=== PATIENT | female | born 1985 | race Two or more races ===

== ENCOUNTER 2021-02-12 23:07 | Emergency (ER) | payer OTHER ==
[~2021-02-12] VITALS: Ht 165.1 cm; Wt 63.6 kg
--- NOTE | 2021-02-12 23:13 | PHYS DOC ---
Adult General HPI HPI Patient is a 35-year-old female who presents with right ankle pain, 7 out of 10 after falling and twisting it, with no radiation. Denies any other injuries. States she is able to walk but it causes discomfort. Review of Systems Review of Systems Review of systems otherwise unremarkable except noted in HPI Physical Exam Physical Exam Constitutional: Well developed, well nourished, no acute distress, non-toxic appearance. [] HENT: Normocephalic, atraumatic, bilateral external ears normal, oropharynx moist, no oral exudates, nose normal. [] Skin: Warm, dry, no erythema, no rash. [] Back: No tenderness, Extremities: No tenderness, no cyanosis, no clubbing, ROM intact, no edema. [] Neurologic: Alert and oriented X 3, normal motor function, normal sensory function, no focal deficits noted. [] Psychologic: Affect normal, judgement normal, mood normal. [] EKG EKG [] Radiology/Procedures Radiology/Procedures [] Heart Score C/O Chest Pain: No Risk Factors: Risk Factors: DM, Current or recent (<one month) smoker, HTN, HLP, family history of CAD, obesity. Risk Scores: Risk Factors: DM, Current or recent (<one month) smoker, HTN, HLP, family history of CAD, obesity. Course & Med Decision Making Course & Med Decision Making Patient is a 35-year-old female presents with right ankle pain Vital signs not concerning. Physical exam noted above. Given Tylenol, ibuprofen and ice pack. Imaging with no obvious osseous abnormalities. Placed patient in Tera wrap. Given crutches and advised to stay off as much as possible to allow healing. Gave education on ankle pain and RICE. Gave local primary care physician information. Advised to follow-up in the morning to set up a follow-up visit next week. Gave return precautions to the ED. Family grateful, verbalized understanding and agreed with plan of discharge. Dragon Disclaimer Chastity Disclaimer This electronic medical record was generated, in whole or in part, using a voice recognition dictation system. Departure Departure: Impression: Primary Impression: Ankle pain Additional Impression: Ankle sprain Disposition: HOME / SELF CARE / HOMELESS Condition: GOOD Referrals: PCP,KRISTEL (PCP) DINA SMITH Patient Instructions: Ankle Sprain, RICE - Routine Care for Injuries Additional Instructions: Thank you for coming into the emergency department tonight and allowing us to take care of you. Please read the attached information carefully to go over things we discussed. Please continue to use Tylenol, ibuprofen and ice packs as needed. Please follow-up with your primary care in the morning to set up a follow-up visit later next week. Please come back to the ED with new or concerning symptoms as we discussed. Problem Qualifiers TRESA YOUNGBLOOD MD Feb 12, 2021 23:13
[2021-02-12] MEDS ORDERED: ACETAMINOPHEN 500 MG TABLET PO ONE (23:15)
[2021-02-12 23:50] VITALS: BP 109/50
--- NOTE | 2021-02-12 23:54 | RAD ---
XR EXAM OF ANKLE_RIGHT 3VIEWS, XR RT TIBIA+FIBULA History: Reason: Fall, right ankle and lower leg pain / Spl. Instructions: / History: Technique: 3 views right ankle and 2 views tibia fibula Comparison: None. Findings: Normal alignment. No dislocation. No acute fracture. Impression: 1. No acute osseous abnormality. Electronically signed by: Igor Gambino DO (02/12/2021 11:51 PM) [facility]
== END 2021-02-13 | disposition home or self-care (01) ==
LOC: ER 23:07
DX: S93.401A Sprain of unspecified ligament of right ankle, initial encounter (principal); X50.1XXA Overexertion from prolonged static or awkward postures, initial encounter; Y93.89 Activity, other specified; Y92.89 Other specified places as the place of occurrence of the external cause; Y99.8 Other external cause status
CPT/HCPCS: 73590; 73610; 99284-25